=== PATIENT | female | born 1975 | race Caucasian/White ===

== ENCOUNTER → 2017-03-21 13:14 | Outpatient (CLI) | payer MEDICARE, OTHER ==
[2014-12-23 08:14] VITALS: BMI 21.9
[~2017-03-21 13:14] MED LIST: CALTRATE 600 M600 M1 PO; CLARITIN 10 MG10 MG PO; CLARITIN5 MG/5 ML; ESTRACE1 MG PO; GLUMETZA; GLUMETZA PO; GLUTOSE 1537.5 GM; HEMOCYTE PLUS C1 CAP PO; MACRODANTIN25 MG; MELATONIN 3 MG1 TAB; MINOCIN100 MG PO; MOBIC7.5 MG PO; NORCO 10/325 TA1 TA1 PO; PRAVACHOL40 MG PO; PRILOSEC10 MG; PRILOSEC20 MG PO; PROMETRIUM100 MG PO; RELAFEN750 MG PO; SOMA350 MG PO; TOPAMAX100 MG PO; TOPAMAX25 MG; VITAMIN B-1000 MCG/M IM; VIVELLE-DOT 00.05 MG; VOLTAREN25 MG
== END | disposition home or self-care (01) ==
LOC: D.MAMMO 08:00
DX: Z12.31 Encounter for screening mammogram for malignant neoplasm of breast (principal)

== ENCOUNTER 2017-07-01 20:21 | Emergency (ER) | payer MEDICARE, OTHER ==
[2014-12-23 08:14] VITALS: BMI 21.9
[2017-07-01 20:56] LABS: BASOPHILS 0.2 % (0-2); EOSINOPHILS 0.8 % (0-7); HEMATOCRIT 35.2 % (36.0-48.0); HEMOGLOBIN 11.6 g/dL (12-16); IMMATURE GRANULOCYTES 0.2 % (0-5); LYMPHOCYTES 32.9 % (15-50); MCH 28.9 pg (26.0-34.0); MCV 87.6 fL (80.0-100.0); MEAN PLATELET VOLUME 12.5 fL (7.4-10.4); MONOCYTES 8.3 % (2-11); NEUTROPHILS 57.6 % (40-80); PLATELET COUNT 164 10x3/uL (130-400); RBC 4.02 10x6/uL (4.00-5.40); RDW 13.6 % (11.5-14.5); WBC 5.9 10x3/uL (4.8-10.8)
[2017-07-01 21:20] LABS: ALBUMIN 2.8 g/dL (3.4-5.0); ALKALINE PHOSPHATASE 200 U/L (46-116); ALT (SGPT) 21 U/L (10-68); BILIRUBIN - TOTAL 0.13 mg/dL (0.2-1.3); CALC OSMOLALITY 282 mosm/kg (275-300); CALCIUM 8.6 mg/dL (8.5-10.1); CARBON DIOXIDE 26.9 mmol/L (21.0-32.0); CHLORIDE - SERUM 107 mmol/L (98-107); CREATININE - SERUM 1.6 mg/dL (0.6-1.3); GLUCOSE 106 mg/dL (74-106); POTASSIUM - SERUM 3.6 mmol/L (3.5-5.1); PROTEIN - SERUM 6.3 g/dL (6.4-8.2); SODIUM 141 mmol/L (136-145); UREA NITROGEN 17 mg/dL (7-18); eGFR NON AFRICAN AMERICAN 37 mL/min (90-120)
[2017-07-01 21:29] LABS: CHOL - HDL RATIO 2.4 ratio (2.3-4.1); CHOLESTEROL, TOTAL 226 mg/dL (0-200); CREATINE KINASE 124 UL (21-215); HDL CHOLESTEROL 94 mg/dL (32-96); LDL CHOLESTEROL 120 mg/dL (0-100); LDL-HDL RATIO 1.3 ratio (1.5-3.5); TRIGLYCERIDE 61 mg/dL (30-200)
[2017-07-01 21:32] LABS: TROPONIN-I < 0.017 ng/mL (0.000-0.060)
== END 2017-07-02 01:03 | disposition home or self-care (01) ==
LOC: D.ER 20:21
PROVIDERS: Emergency Medicine
DX: R07.81 Pleurodynia (principal)

== ENCOUNTER 2017-10-26 16:42 | Emergency (ER) | payer MEDICARE, OTHER ==
[2014-12-23 08:14] VITALS: BMI 21.9
[2017-10-26 17:34] LABS: BASOPHILS 0.2 % (0-2); EOSINOPHILS 1.1 % (0-7); HEMATOCRIT 37.7 % (36.0-48.0); IMMATURE GRANULOCYTES 0.1 % (0-5); LYMPHOCYTES 23.5 % (15-50); MCH 26.3 pg (26.0-34.0); MCHC 31.8 g/dL (31.0-37.0); MCV 82.7 fL (80.0-100.0); MEAN PLATELET VOLUME 11.3 fL (7.4-10.4); MONOCYTES 6.6 % (2-11); NEUTROPHILS 68.5 % (40-80); PLATELET COUNT 284 10x3/uL (130-400); RBC 4.56 10x6/uL (4.00-5.40); RDW 13.9 % (11.5-14.5); WBC 9.8 10x3/uL (4.8-10.8)
[2017-10-26 17:42] LABS: APPEARANCE HAZY (CLEAR); BILIRUBIN NEGATIVE (NEGATIVE); COLOR DK YELLOW (YELLOW); GLUCOSE NEGATIVE (NEGATIVE); KETONE NEGATIVE (NEGATIVE); NITRITE NEGATIVE (NEGATIVE); PROTEIN NEGATIVE (NEGATIVE); UROBILINOGEN NORMAL (NORMAL)
[2017-10-26 17:43] LABS: ALBUMIN 3.9 g/dL (3.4-5.0); BILIRUBIN - TOTAL 0.38 mg/dL (0.2-1.3); CALCIUM 8.9 mg/dL (8.5-10.1); CREATININE - SERUM 1.1 mg/dL (0.6-1.3); PROTEIN - SERUM 7.8 g/dL (6.4-8.2)
[2017-10-26 17:44] LABS: BACTERIA MODERATE /hpf (NONE SEEN)
== END 2017-10-26 22:28 | disposition home or self-care (01) ==
LOC: D.ER 16:42
PROVIDERS: Emergency Medicine
DX: K59.00 Constipation, unspecified (principal)

== ENCOUNTER → 2018-01-23 07:52 | Outpatient (CLI) | payer MEDICARE, OTHER ==
[2014-12-23 08:14] VITALS: BMI 21.9
== END | disposition home or self-care (01) ==
LOC: D.MRI 07:52
DX: D35.2 Benign neoplasm of pituitary gland (principal)

== ENCOUNTER 2018-04-14 19:00 | Outpatient (CLI) | payer MEDICARE, OTHER ==
[2014-12-23 08:14] VITALS: BMI 21.9
== END 2018-04-14 23:59 | disposition home or self-care (01) ==
LOC: D.MAMMO 19:00
DX: Z12.31 Encounter for screening mammogram for malignant neoplasm of breast (principal)

== ENCOUNTER → 2018-05-07 08:05 | Outpatient (CLI) | payer MEDICARE, OTHER ==
[2014-12-23 08:14] VITALS: BMI 21.9
[2018-05-08 10:22] LABS: IMMUNOGLOBULIN A 16 mg/dL (87-352); IMMUNOGLOBULIN G 1242 mg/dL (700-1600); IMMUNOGLOBULIN M 192 mg/dL (26-217)
[2018-05-11 13:07] LABS: IMMUNOGLOBULIN E 16 IU/mL (0-100)
== END | disposition home or self-care (01) ==
LOC: D.LAB 08:00
PROVIDERS: Internal Medicine Pulmonary Disease
DX: R06.02 Shortness of breath (principal)

== ENCOUNTER 2018-10-23 09:01 | Emergency (ER) | payer MEDICARE, OTHER ==
[~2018-10-23] VITALS: Ht 154.9 cm; Wt 51.4 kg
[2018-10-23 09:06] VITALS: Ht 154.9 cm; Wt 51.4 kg
[2018-10-23] MEDS ORDERED: PRECOSE25 MG PO (09:10)
[2018-10-23] MEDS ORDERED: AMITIZA8 MCG PO (09:11)
[2018-10-23] MEDS ORDERED: CARDIZEM30 MG PO (09:11)
[2018-10-23] MEDS ORDERED: PHENERGAN25 M1 PO (09:12)
[2018-10-23] MEDS ORDERED: HYDROXYZINE HCL50 MG PO (09:12)
[2018-10-23] MEDS ORDERED: PLAQUENIL (09:13)
[2018-10-23 10:13] LABS: ALBUMIN 3.4 g/dL (3.4-5.0); BILIRUBIN - TOTAL 0.57 mg/dL (0.2-1.3); CALCIUM 8.1 mg/dL (8.5-10.1); CARBON DIOXIDE 21.1 mmol/L (21.0-32.0); CREATININE - SERUM 1.1 mg/dL (0.6-1.3); POTASSIUM - SERUM 3.1 mmol/L (3.5-5.1); PROTEIN - SERUM 6.9 g/dL (6.4-8.2)
[2018-10-23 10:31] LABS: BASOPHILS 0.4 % (0-2); EOSINOPHILS 1.3 % (0-7); HEMATOCRIT 35.9 % (36.0-48.0); HEMOGLOBIN 12.3 g/dL (12-16); IMMATURE GRANULOCYTES 0.3 % (0-5); LYMPHOCYTES 35.4 % (15-50); MCH 28.7 pg (26.0-34.0); MCHC 34.3 g/dL (31.0-37.0); MCV 83.9 fL (80.0-100.0); MEAN PLATELET VOLUME 12.3 fL (7.4-10.4); MONOCYTES 9.3 % (2-11); NEUTROPHILS 53.3 % (40-80); PLATELET COUNT 162 10x3/uL (130-400); RBC 4.28 10x6/uL (4.00-5.40); RDW 14.3 % (11.5-14.5); WBC 7.1 10x3/uL (4.8-10.8)
[2018-10-23 10:39] LABS: APPEARANCE CLEAR (CLEAR); BILIRUBIN NEGATIVE (NEGATIVE); COLOR DK YELLOW (YELLOW); GLUCOSE NEGATIVE (NEGATIVE); KETONE NEGATIVE (NEGATIVE); NITRITE NEGATIVE (NEGATIVE); PROTEIN NEGATIVE (NEGATIVE); SPECIFIC GRAVITY 1.025 (1.005-1.020); UROBILINOGEN NORMAL (NORMAL)
[2018-10-23 12:40] VITALS: BP 117/76
== END 2018-10-23 12:40 | disposition home or self-care (01) ==
LOC: D.ER 09:01
PROVIDERS: Family Medicine
DX: E87.6 Hypokalemia (principal); E86.0 Dehydration

== ENCOUNTER 2018-11-09 01:11 | Emergency (ER) | payer MEDICARE, OTHER ==
[~2018-11-09] VITALS: Ht 154.9 cm; Wt 52.7 kg
[~2018-11-09 01:11] MED LIST changes: +AMITIZA8 MCG PO; +CARDIZEM30 MG PO; +HYDROXYZINE HCL50 MG PO; +PHENERGAN25 M1 PO; +PLAQUENIL; +PRECOSE25 MG PO
[2018-11-09 01:18] VITALS: Ht 154.9 cm; Wt 52.7 kg
[2018-11-09] MEDS ORDERED: ZPAK PO (02:13)
[2018-11-09] MEDS ORDERED: SCOT-TUSSI10 MG/5 ML PO (02:14)
[2018-11-09 02:33] VITALS: BP 112/70
== END 2018-11-09 02:33 | disposition home or self-care (01) ==
LOC: D.ER 01:11
DX: J06.9 Acute upper respiratory infection, unspecified (principal); R09.89 Other specified symptoms and signs involving the circulatory and respiratory systems; R05 Cough

== ENCOUNTER 2019-08-04 05:55 | Day surgery (SDC) | payer MEDICARE, OTHER ==
[2018-11-09 01:18] VITALS: BMI 21.9
[~2019-08-04 05:55] MED LIST changes: +AJOVY IM; +MAXALT10 MG PO; +METHOCARBAMOL PO; +MINIVELLE1 EAC1 TRANSDERM; -MINOCIN100 MG PO; +MINOCIN50 MG PO; +MYRBETRIQ50 MG PO; -PLAQUENIL; +PLAQUENIL PO; +SCOT-TUSSI10 MG/5 ML PO; +TIROSINT50 MCG PO; +VALIUM10 MG PO; +ZOLOFT50 MG PO; +ZPAK PO
[2019-08-04 06:25] LABS: HEMATOCRIT 35.1 % (36.0-48.0); MCH 26.2 pg (26.0-34.0); MCHC 31.3 g/dL (31.0-37.0); MCV 83.6 fL (80.0-100.0); MEAN PLATELET VOLUME 11.5 fL (7.4-10.4); RBC 4.2 10x6/uL (4.00-5.40); RDW 14.7 % (11.5-14.5)
[2019-08-04 07:18] LABS: ANION GAP 10.8 mmol/L (8-16); CALCIUM 8.5 mg/dL (8.5-10.1); CARBON DIOXIDE 26.8 mmol/L (21.0-32.0); CREATININE - SERUM 1.3 mg/dL (0.6-1.3); POTASSIUM - SERUM 3.6 mmol/L (3.5-5.1)
--- NOTE | 2019-08-04 09:19 | NUR ---
PT INTRUCTED TO MOVE FROM SIDE TO SIDE PER DR. MORALES. WAIT FOR 15 MINTUES BEFORE USING BATHROOM
--- NOTE | 2019-08-04 09:46 | NUR ---
DC INSTRUCTIONS GIVEN TO PT/SPOUSE. STATE UNDERSTANDING. DC'D IV CATH FULLY INTACT. PT LEFT UNIT VIA AT [id number]
--- NOTE | 2019-08-04 09:52 | OP ---
PATIENT NAME: DONNY TERRELL MEDICAL RECORD: [id number] :71 LOCATION:D[facility] ADMISSION DATE: SURGEON: ILSA MORALES MD DATE OF OPERATION: 08/04/2019 SURGEON: Ilsa Morales MD ANESTHESIA: TIVA by Jessica Argueta CRNA DIAGNOSES: Interstitial cystitis, urge urinary incontinence. PROCEDURES: Cystoscopy, hydrodistention, intravesical Botox injection, intravesical Rimso instillation 50 mL. FINDINGS: Inflamed bladder mucosa without any bladder tumors. Single ureteral orifices bilaterally. BLOOD LOSS: None. CLINICAL HISTORY: This is a 43-year-old female, G0, P0, A0, who has had a history of hysterectomy for endometriosis. She has chronic bladder pain. Urinalysis is completely clear. She has urinary frequency every 2 hours as well as nocturia times 5-6. There is urgency. Initially, she has had without incontinence, but lately she has had some episodes of incontinence. She recently had exploratory laparotomy for chronic pelvic pain and no significant findings were noted. This was done at [facility] in [place]. Today, we are performing procedures to treat interstitial cystitis and urge incontinence. She is allergic to multiple antibiotics. She was given 40 mg of gentamicin IV organic section technical lead to the OR. DESCRIPTION OF PROCEDURE: The patient was given IV sedation. She was placed in the lithotomy position and prepped and draped. A 20-Polish cystoscope with 30-degree lens was used for visualization. She has diffuse bladder inflammation. The bladder was distended to 600 mL. While the bladder was distended, we injected at 10 different locations 1 mL of Botox solution into the bladder muscle. Each mL of Botox solution had 10 units of Botox dissolved in it. We avoided the ureteral orifices on the trigone. Once the Botox injection was done, the hydrodistention was also completed. The bladder was then emptied through the cystoscope sheath. We inserted a red rubber catheter, and through the lumen of the red rubber catheter we instilled the 50 mL of Rimso solution into the bladder. The red rubber catheter was then removed, leaving the Rimso solution in the bladder. The patient will hold the Rimso solution for 15 minutes and then void it out. I will see her in followup in 2-3 weeks to check on the effectiveness of this treatment. TRANSINT:[id number] Voice Confirmation ID: [id number] DOCUMENT ID: [id number] OPERATIVE REPORT [id number] NIDHI,ILSA BECERRA MD at 0952 CC: [id number] DICTATION DATE: 08/04/19900 BAND MACHINE OPERATOR: 08/04/1944 [facility] 08/04/19 [place] [id number] [place] [id number]
== END 2019-08-04 09:42 | disposition home or self-care (01) ==
LOC: D.OPS 05:55 → D.PAN 08:40 → D.OPS 08:40 → D.PAN 09:00 → D.OPS 09:00
PROVIDERS: Anesthesiology; ATTEND Urology
DX: N30.10 Interstitial cystitis (chronic) without hematuria (principal); N39.41 Urge incontinence

== ENCOUNTER → 2020-06-14 17:00 | Outpatient (CLI) | payer MEDICARE, OTHER ==
[2018-11-09 01:18] VITALS: BMI 21.9
== END ==
LOC: D.MAMMO 06-10 14:15
PROVIDERS: ATTEND Emergency Medicine
DX: Z12.31 Encounter for screening mammogram for malignant neoplasm of breast (principal)

== ENCOUNTER 2020-11-18 13:21 | Inpatient (IN) | payer MEDICARE, OTHER ==
[~2020-11-18] VITALS: Ht 154.9 cm; Wt 52.3 kg
[~2020-11-18 13:21] MED LIST changes: -MELATONIN 3 MG1 TAB; +MELATONIN 3 MG1 TAB PO
[2020-11-18 13:43] VITALS: BP 149/97
--- NOTE | 2020-11-18 13:57 | NUR ---
PATIENT ARRIVED TO UNIT VIA WHEELCHAIR WITH SPOUSE AND SERVICE DOG. ALERT AND ORIENTED. VS CHARTED. CALL LIGHT IN REACH. SAFETY PRECAUTIONS IN PLACE.
--- NOTE | 2020-11-18 15:02 | NUR ---
TRIED FOR IV ACCESS X2 NURSES. WILL HAVE ANOTHER NURSE TRY.
[2020-11-18 15:23] LABS: BASOPHILS 0.2 % (0-2); EOSINOPHILS 0.4 % (0-7); HEMATOCRIT 29.9 % (36.0-48.0); HEMOGLOBIN 9.9 g/dL (12-16); IMMATURE GRANULOCYTES 0.2 % (0-5); LYMPHOCYTE ABS# 1.47 10x3/uL (1.18-3.74); LYMPHOCYTES 27.3 % (15-50); MCH 26.9 pg (26.0-34.0); MCHC 33.1 g/dL (31.0-37.0); MCV 81.3 fL (80.0-100.0); MONOCYTES 8.2 % (2-11); NEUTROPHIL ABS# 3.43 10x3/uL (1.56-6.13); NEUTROPHILS 63.7 % (40-80); RBC 3.68 10x6/uL (4.00-5.40); RDW 13.7 % (11.5-14.5); WBC 5.4 10x3/uL (4.8-10.8)
[2020-11-18 15:25] LABS: PLATELET COUNT 97 10x3/uL (130-400)
[2020-11-18 15:31] LABS: ANION GAP 10.7 mmol/L (8-16); BILIRUBIN - TOTAL 0.46 mg/dL (0.2-1.3); CALCIUM 10.4 mg/dL (8.5-10.1); CARBON DIOXIDE 26.5 mmol/L (21.0-32.0); CREATININE - SERUM 2.7 mg/dL (0.6-1.3); POTASSIUM - SERUM 3.2 mmol/L (3.5-5.1); PROTEIN - SERUM 6.1 g/dL (6.4-8.2); THYROID STIMULATING HORMONE 1.16 uIU/mL (0.36-3.74)
--- NOTE | 2020-11-18 15:35 | NUR ---
BLADDER SCAN PRIOR TO VOIDING WAS 77CC.
[2020-11-18 15:57] LABS: CREATININE - URINE 178.8 mg/dL (30-125); PRO/CRE RATIO URINE 0.3 mg/g; PROTEIN - URINE 49.2 mg/dL (0.0-11.9)
[2020-11-18 16:26] LABS: PLATELET ESTIMATE DECREASED
[2020-11-18 16:28] LABS: BILIRUBIN NEGATIVE (NEGATIVE); KETONE NEGATIVE (NEGATIVE); NITRITE NEGATIVE (NEGATIVE); UROBILINOGEN NORMAL mg/dL (< 2)
[2020-11-18 18:46] VITALS: BP 149/97; BMI 19.3
[2020-11-18 19:46] VITALS: BP 103/67
[2020-11-18 23:33] LABS: AMYLASE - SERUM 38 U/L (25-115); CKMB 0.8 U/L (0.0-3.6); LIPASE 71 U/L (73-393); MAGNESIUM - SERUM 1.7 mg/dL (1.8-2.4); TROPONIN-I 0.028 ng/mL (0.000-0.060)
[2020-11-19 03:50] VITALS: BP 128/60
[2020-11-19 04:47] LABS: BASOPHILS 0.3 % (0-2); EOSINOPHILS 1.5 % (0-7); HEMATOCRIT 24.9 % (36.0-48.0); LYMPHOCYTE ABS# 1.54 10x3/uL (1.18-3.74); LYMPHOCYTES 44.8 % (15-50); MCH 26.7 pg (26.0-34.0); MCHC 32.1 g/dL (31.0-37.0); MONOCYTES 12.2 % (2-11); NEUTROPHIL ABS# 1.42 10x3/uL (1.56-6.13); NEUTROPHILS 41.2 % (40-80); PLATELET COUNT 79 10x3/uL (130-400); RDW 13.8 % (11.5-14.5)
[2020-11-19 04:48] LABS: WBC 3.4 10x3/uL (4.8-10.8)
[2020-11-19 05:16] LABS: ALBUMIN 2.3 g/dL (3.4-5.0); ANION GAP 9.9 mmol/L (8-16); BILIRUBIN - TOTAL 0.41 mg/dL (0.2-1.3); CALCIUM 8.7 mg/dL (8.5-10.1); CARBON DIOXIDE 24.1 mmol/L (21.0-32.0); CREATININE - SERUM 2.4 mg/dL (0.6-1.3); MAGNESIUM - SERUM 1.7 mg/dL (1.8-2.4)
[2020-11-19 08:02] VITALS: BMI 19.2
[2020-11-19 08:32] VITALS: BP 107/63
--- NOTE | 2020-11-19 09:28 | NUR ---
PT AWAKE AND ORIENTED, LYING IN BED WATCHING T/V. PT HAD ALREADY EATEN SMALL AMOUNTS OF BREAKFAST. WILL REMAIN NPO UNTIL EMPTYING SCAN AT 1500. STATES NAUSEA IS A LITTLE BETTER NOW THAT PO PHENERAGAN HAS BEEN ADMINISTERED. TREATING K VIA I/V PER RENAL RECORDING STUDIO INTERN, PT UNABLE TO TOLERATE PO K EITHER POWDER OR PILL. TOOK ALL OTHER MEDICATIONS WITHOUT COMPLICATIONS. CL IN REACH, SRX2.
--- NOTE | 2020-11-19 09:58 | NUR ---
I have reviewed this patient and I concur with the Shift Assessment completed by the Licensed Practical Nurse today this shift.
--- NOTE | 2020-11-19 11:14 | NUR ---
PT STATES IT FEELS IF SHE NEEDS TO URINATE, REASURED PT AND FAMILY THAT GOMEZ CATH IS IN AND WORKING WNL. SON AT BEDSIDE. CL INR EACH, SRX2. PENSION ADMINISTRATOR REPORTED THAT PT WORE BIPAP FOR 5HRS LAST NIGHT.
[2020-11-19 12:36] LABS: % SATURATION 72 % (15-55); IRON 93 ug/dl (35-150); TOTAL IRON BIND CAPACITY 128 ug/dl (260-445); UNSAT IRON BIND CAPACITY 35 ug/dl (150-375)
[2020-11-19 14:00] LABS: UDS - AMPHET NEGATIVE QUAL (NEGATIVE); UDS - BARB NEGATIVE QUAL (NEGATIVE); UDS - BENZO NEGATIVE QUAL (NEGATIVE); UDS - COCAINE NEGATIVE QUAL (NEGATIVE); UDS - OPIATE POSITIVE QUAL (NEGATIVE); UDS - PCP POSITIVE QUAL (NEGATIVE); UDS - THC NEGATIVE QUAL (NEGATIVE)
[2020-11-19 14:35] VITALS: BP 94/47
--- NOTE | 2020-11-19 15:06 | NUR ---
PT ESCORTED FOR GASTRO SCAN.
--- NOTE | 2020-11-19 16:29 | NUR ---
PT AWAKE AND ORIENTED, FRANC FROM GASTRO SCAN. CLIN REACH, SRX2.
[2020-11-19 16:43] VITALS: BP 120/64
[2020-11-19 22:19] VITALS: BP 122/68
[2020-11-20 00:30] VITALS: BP 93/40
[2020-11-20 04:30] VITALS: BP 103/57
[2020-11-20 06:59] LABS: BASOPHILS 0.3 % (0-2); EOSINOPHILS 2.5 % (0-7); HEMATOCRIT 24.8 % (36.0-48.0); HEMOGLOBIN 7.6 g/dL (12-16); LYMPHOCYTE ABS# 1.59 10x3/uL (1.18-3.74); MCH 26.2 pg (26.0-34.0); MCHC 30.6 g/dL (31.0-37.0); MONOCYTES 8.2 % (2-11); NEUTROPHIL ABS# 1.55 10x3/uL (1.56-6.13); PLATELET COUNT 71 10x3/uL (130-400); RDW 14.2 % (11.5-14.5); WBC 3.5 10x3/uL (4.8-10.8)
[2020-11-20 07:00] LABS: MCV 85.5 fL (80.0-100.0); PLATELET ESTIMATE DECREASED
[2020-11-20 07:19] LABS: ALBUMIN 2.2 g/dL (3.4-5.0); ANION GAP 11.2 mmol/L (8-16); BILIRUBIN - TOTAL 0.4 mg/dL (0.2-1.3); CALCIUM 7.9 mg/dL (8.5-10.1); CARBON DIOXIDE 20.2 mmol/L (21.0-32.0); CREATININE - SERUM 2.1 mg/dL (0.6-1.3); MAGNESIUM - SERUM 1.6 mg/dL (1.8-2.4); POTASSIUM - SERUM 3.4 mmol/L (3.5-5.1); PROTEIN - SERUM 4.5 g/dL (6.4-8.2)
--- NOTE | 2020-11-20 12:01 | NUR ---
RESITED I/V TO LFA 20G 1 STICK. FLUIDS RUNNING APPROPRIATELY.
[2020-11-20 12:49] VITALS: BP 116/70
--- NOTE | 2020-11-20 14:31 | NUR ---
PT AWAKE AND ORIENTED THROUGHOUT THE DAY. TOOK ALL MEDICATIONS WITHOUT COMPLICATIONS. REPORTS CONTINUED NAUSEA BUT NO VOMMITING. PT STATES THAT HER BACK PAIN IS INCREASING THROUGHOUT THE DAY, REQUESTING A DIFFERENT PAIN MEDICATION FOR MANAGMENT. PT IS ALERT AND ORIENTED, AMBULATING IN ROOM UNASSISTED WITH NO REPORTED OR NOTED DIFFICULTIES. REMOVED 20G RAC TIP INTACT D/T INFILTRATION, REPLACED WITH 20GLFA, I/V FLUIDS RUNNING M.D ORDERED. CL IN REACH, SRX2.
--- NOTE | 2020-11-20 17:21 | NUR ---
I have reviewed this patient and I concur with the Shift Assessment completed by the Licensed Practical Nurse today this shift.
[2020-11-20 17:41] VITALS: Ht 154.9 cm; Wt 52.3 kg
--- NOTE | 2020-11-20 17:53 | NUR ---
PER NURSE HARRIET TO SCHEDULE CT BONE DEEP BIOPSY ON 11/21 WHEN RADIOLOGIST IS IN HOUSE. NURSE COMMENTED NOT ON BLOOD THINNERS. RADIOLOGIST TO BE INFORMED IN THE AM SCHEDULED
[2020-11-20 18:52] VITALS: BP 126/78
[2020-11-20 19:00] VITALS: BP 120/71
[2020-11-21] VITALS (7 sets, daily range): BP systolic 98–128; BP diastolic 61–82
[2020-11-21 07:17] LABS: ALBUMIN 2.4 g/dL (3.4-5.0); ANION GAP 13.4 mmol/L (8-16); BILIRUBIN - TOTAL 0.33 mg/dL (0.2-1.3); CALCIUM 7.4 mg/dL (8.5-10.1); CARBON DIOXIDE 18.2 mmol/L (21.0-32.0); CREATININE - SERUM 1.9 mg/dL (0.6-1.3); MAGNESIUM - SERUM 1.5 mg/dL (1.8-2.4); POTASSIUM - SERUM 3.6 mmol/L (3.5-5.1); PROTEIN - SERUM 4.8 g/dL (6.4-8.2)
[2020-11-21 07:34] LABS: BASOPHILS 0.5 % (0-2); EOSINOPHILS 2.5 % (0-7); HEMATOCRIT 24.2 % (36.0-48.0); HEMOGLOBIN 7.6 g/dL (12-16); LYMPHOCYTE ABS# 1.76 10x3/uL (1.18-3.74); LYMPHOCYTES 44.1 % (15-50); MCH 26.4 pg (26.0-34.0); MCHC 31.4 g/dL (31.0-37.0); MONOCYTES 10.8 % (2-11); NEUTROPHIL ABS# 1.68 10x3/uL (1.56-6.13); NEUTROPHILS 42.1 % (40-80); PLATELET COUNT 77 10x3/uL (130-400); RBC 2.88 10x6/uL (4.00-5.40); RDW 14.1 % (11.5-14.5)
[2020-11-21 07:35] LABS: INR 1.16 (0.85-1.17); PROTIME 13.7 SECONDS (11.6-15.0)
--- NOTE | 2020-11-21 09:16 | NUR ---
PT ESCORTED TO RADIOLOGY FOR SCAN.
--- NOTE | 2020-11-21 12:40 | NUR ---
PT AWAKE AN DOIRENTED, LYING IN BED AFTER EATING LUNCH. STATES NAUSEA IS BETTER BUT STILL PRESENT. PT REPORTS BACK PAIN CONSISTENT WITH YESTERDAYS COMPLAINTS. TOOK ALL MEDICATIONS WITHOUT COMPLICATIONS. CL IN REACH, SRX2.
--- NOTE | 2020-11-21 18:00 | NUR ---
I have reviewed this patient and I concur with the Shift Assessment completed by the Licensed Practical Nurse today this shift.
--- NOTE | 2020-11-21 18:23 | NUR ---
PT AWAKE AND OIRENTED, LYING IN BED. REPORTS DIAHREAH, OBTAINED STOOL SPECIMENS. CL IN REACH, SRX2.
[2020-11-22] VITALS: BP 103/67
--- NOTE | 2020-11-22 00:55 | NUR ---
RESTING WITH EEYS CLOSED, NO S/S DISTRESS NOTED.
--- NOTE | 2020-11-22 03:26 | NUR ---
I have reviewed this patient and I concur with the Shift Assessment completed by the Licensed Practical Nurse today this shift.
[2020-11-22 04:00] VITALS: BP 108/61
[2020-11-22 05:48] LABS: ALBUMIN 2.1 g/dL (3.4-5.0); ANION GAP 11.3 mmol/L (8-16); BILIRUBIN - TOTAL 0.25 mg/dL (0.2-1.3); CALCIUM 7.1 mg/dL (8.5-10.1); CARBON DIOXIDE 18.5 mmol/L (21.0-32.0); CREATININE - SERUM 1.6 mg/dL (0.6-1.3); MAGNESIUM - SERUM 1.5 mg/dL (1.8-2.4); POTASSIUM - SERUM 3.8 mmol/L (3.5-5.1); PROTEIN - SERUM 4.6 g/dL (6.4-8.2)
[2020-11-22 06:36] LABS: LYMPHOCYTE ABS# 0.94 10x3/uL (1.18-3.74); MCH 27.2 pg (26.0-34.0); MCHC 32.8 g/dL (31.0-37.0); NEUTROPHIL ABS# 1.53 10x3/uL (1.56-6.13); PLATELET COUNT 70 10x3/uL (130-400); RBC 2.35 10x6/uL (4.00-5.40); RDW 14.5 % (11.5-14.5); WBC 3.1 10x3/uL (4.8-10.8)
[2020-11-22 06:57] LABS: HEMATOCRIT 19.5 % (36.0-48.0); HEMOGLOBIN 6.4 g/dL (12-16)
--- NOTE | 2020-11-22 07:06 | NUR ---
PAGE OUT TO DR REESE TO INFORM OF CRITICAL H&H.
[2020-11-22 09:14] VITALS: BP 144/70
--- NOTE | 2020-11-22 13:11 | NUR ---
Nutrition Follow-up: Pt unavailable at time of visit this AM. Chart reviewed. Noted pt c/o nausea, diarrhea, abd pain. Nursing unsure of how pt has been eating; received Zofran & Imodium this AM. CDT (-). Bone marrow bx yesterday. Diet: Regular PO intake: 0-50% (11/19); no other PO intake recorded No new wt; last wt: 102# (11/19) Labs noted: BUN 6, Cre 1.6, GFR 37, Glu 70, Ca 7.1, Mg 1.5, Alb 2.1 Meds noted: Mag Sulfate, vit D, Pancrease, Reglan, Zofran, Carafate, Imodium, KDur, Protonix, NS @ 75, electrolyte protocol -Encourage PO intake and honor food preferences. -Offer nutrition supplements. -Need new wt. -RD will follow up within 2-3 days.
[2020-11-22 13:13] LABS: HEPATITIS C ANTIBODY <0.1 S/CO RAT (0.0-0.9)
[2020-11-22 13:49] LABS: LYMPHOCYTES 41 % (15-50); MONOCYTES 5 % (2-11); NEUTROPHILS 53 % (40-80); PLATELET ESTIMATE DECREASED; ROULEAUX OCC
[2020-11-22 13:50] LABS: HYPOCHROMASIA OCC
--- NOTE | 2020-11-22 14:53 | NUR ---
PATIENT LYING SUPINE AAOX4, RESP EVEN AND NON LABORED, NO S/S OF DISTRESS, MEDICATIONS ADMINISTERED WITH NO COMPLICATIONS, SPRITE AND CRACKERS PROVIDED FOR N/V, BLOOD HUNG AND MONITORED PATIENT FOR THE FIRST 15 MINUTES, PATIENT TOLERATED WITH NO ISSUES, NO FURTHER NEEDS AT THIS TIME, CLIR, BLP
[2020-11-22 16:00] VITALS: BP 109/45
--- NOTE | 2020-11-22 16:46 | NUR ---
BLOOD CONSENT OBATINED AND BLOOD HUNG, PATIENT TOLERATED WITH NO COMPLICATIONS
[2020-11-22 20:00] VITALS: BP 120/70
--- NOTE | 2020-11-22 20:50 | NUR ---
IV COVERED, PT UP TO SHOWER, LINENS CHANGED.
--- NOTE | 2020-11-23 03:33 | NUR ---
I have reviewed this patient and I concur with the Shift Assessment completed by the Licensed Practical Nurse today this shift.
[2020-11-23 04:00] VITALS: BP 109/63
[2020-11-23 05:06] LABS: BASOPHILS 0.6 % (0-2); EOSINOPHILS 3.6 % (0-7); LYMPHOCYTE ABS# 1.29 10x3/uL (1.18-3.74); LYMPHOCYTES 35.7 % (15-50); MCH 27.4 pg (26.0-34.0); MCHC 32.2 g/dL (31.0-37.0); MONOCYTES 10.8 % (2-11); NEUTROPHIL ABS# 1.78 10x3/uL (1.56-6.13); NEUTROPHILS 49.3 % (40-80); PLATELET COUNT 66 10x3/uL (130-400); RDW 15.2 % (11.5-14.5); WBC 3.6 10x3/uL (4.8-10.8)
[2020-11-23 05:14] LABS: HEMATOCRIT 25.8 % (36.0-48.0); HEMOGLOBIN 8.3 g/dL (12-16); MCV 85.1 fL (80.0-100.0); RBC 3.03 10x6/uL (4.00-5.40)
[2020-11-23 06:15] LABS: ALBUMIN 2.1 g/dL (3.4-5.0); BILIRUBIN - TOTAL 0.34 mg/dL (0.2-1.3); CARBON DIOXIDE 17.6 mmol/L (21.0-32.0); CREATININE - SERUM 1.5 mg/dL (0.6-1.3); POTASSIUM - SERUM 3.6 mmol/L (3.5-5.1); PROTEIN - SERUM 4.5 g/dL (6.4-8.2)
[2020-11-23 06:32] LABS: MAGNESIUM - SERUM 1.9 mg/dL (1.8-2.4)
[2020-11-23 06:34] LABS: CALCIUM 6.9 mg/dL (8.5-10.1)
--- NOTE | 2020-11-23 07:13 | NUR ---
RECEIVE SHIFT REPORT. RESTING IN BED WITH LIGHTS OFF. TV ON. STATES HER STOMACH FEELS BLOATED IN THE LOWER PART AND UPPER ABDOMEN FEELS LIKE STABBING PAIN. COMPLAINTS OF BACK PAIN. WILL CONTINUE POC AND SAFETY PRECAUTIONS. MEDICATIONS GIVEN FOR PAIN.
[2020-11-23 08:28] VITALS: BP 111/64
[2020-11-23 12:24] VITALS: BP 127/75
--- NOTE | 2020-11-23 14:39 | NUR ---
NOTIFIED BY BLOOD BANK THAT ONLY 1 UNIT OF PRBC WAS GIVEN OUT OF 2 YESTERDAY 11/22/20. WAS TOLD IN REPORT FROM DARELL DING THAT PATIENT RECEIVED 2 UNITS PRBC YESTERDAY. CALLED DARIUSZ BERUMEN AND DISCUSSED. ORDERED NOT TO GIVE THE SECOND ONE SHE LOOKS BETTER TODAY. PATIENT STATES SHE IS BLOATED AND NOT PASSING GAS. DARIUSZ BERUMEN ORDERED GAS X.
[2020-11-23 16:01] VITALS: BP 109/71
[2020-11-23 23:44] VITALS: BP 132/74
[2020-11-24 04:45] VITALS: BP 126/73
[2020-11-24 05:28] LABS: BASOPHILS 0.3 % (0-2); EOSINOPHILS 2.9 % (0-7); HEMATOCRIT 27.3 % (36.0-48.0); HEMOGLOBIN 8.6 g/dL (12-16); LYMPHOCYTE ABS# 1.26 10x3/uL (1.18-3.74); LYMPHOCYTES 37.1 % (15-50); MCHC 31.5 g/dL (31.0-37.0); MCV 85.8 fL (80.0-100.0); MONOCYTES 13.5 % (2-11); NEUTROPHIL ABS# 1.57 10x3/uL (1.56-6.13); NEUTROPHILS 46.2 % (40-80); RBC 3.18 10x6/uL (4.00-5.40); RDW 15.4 % (11.5-14.5); WBC 3.4 10x3/uL (4.8-10.8)
[2020-11-24 05:39] LABS: PLATELET COUNT 94 10x3/uL (130-400)
[2020-11-24 05:51] LABS: ALBUMIN 2.2 g/dL (3.4-5.0); BILIRUBIN - TOTAL 0.3 mg/dL (0.2-1.3); CARBON DIOXIDE 20.6 mmol/L (21.0-32.0); CREATININE - SERUM 1.4 mg/dL (0.6-1.3); PROTEIN - SERUM 4.9 g/dL (6.4-8.2)
[2020-11-24 06:06] LABS: ANION GAP 10.6 mmol/L (8-16); POTASSIUM - SERUM 4.2 mmol/L (3.5-5.1)
[2020-11-24 06:07] LABS: CALCIUM 6.8 mg/dL (8.5-10.1)
--- NOTE | 2020-11-24 06:26 | NUR ---
I have reviewed this patient and I concur with the Shift Assessment completed by the Licensed Practical Nurse today this shift.
--- NOTE | 2020-11-24 07:13 | NUR ---
RECEIVE SHIFT REPORT. RESTING IN BED WITH TV ON. DENIES ANY NEEDS AT THIS TIME. STATES IMMODIUM IS HELPING DIARRHEA SOME. WILL CONTINUE MONITORING BOWEL MOVEMENTS. CALL LIGHT IN REACH. WILL CONTINUE POC AND SAFETY PRECAUTIONS.
[2020-11-24 08:00] VITALS: BP 131/80
[2020-11-24 11:00] VITALS: BP 130/77
--- NOTE | 2020-11-24 13:24 | NUR ---
Nutrition Follow-up: Poor PO intake. Still c/o nausea this AM without vomiting. Diarrhea somewhat improved with Imodium. Ate soup last night. Reports that she is lactose intolerant. Diet: Regular Wt: 115# (11/24) Labs noted: Ca 6.8, Alb 2.2 Meds noted: Questran, Imodium, Zofran, Carafate, Protonix, KDur, NS @ 75 -Change to GI soft diet; communicate lactose intolerance to kitchen. -Encourage PO intake and honor food preferences. -Monitor wt. -RD follow-up: 11/28
[2020-11-24 15:00] VITALS: BP 112/66
[2020-11-24 18:34] LABS: ALBUMIN 2.6 g/dL (3.4-5.0); BILIRUBIN - TOTAL 0.25 mg/dL (0.2-1.3); CALCIUM 7.2 mg/dL (8.5-10.1); CARBON DIOXIDE 20.1 mmol/L (21.0-32.0); CREATININE - SERUM 1.4 mg/dL (0.6-1.3); POTASSIUM - SERUM 4.1 mmol/L (3.5-5.1); PROTEIN - SERUM 5.4 g/dL (6.4-8.2)
--- NOTE | 2020-11-24 21:00 | NUR ---
PATIENT ALERT AND ORIENTED. REPORTS PAIN TO BACK 04/18. WILL MEDICATE PER EMAR. CLIR. BED IN LOWEST POSITION. WILL CONT TO MONITOR.
[2020-11-24 21:27] VITALS: BP 137/79
--- NOTE | 2020-11-24 23:44 | NUR ---
BLOOD GLUCOSE 69. SN GAVE JUICE AND CRACKERS. WILL RECHECK IN 30 MINUTES. CLIR. BED IN LOWEST POSITION.
[2020-11-25 00:11] VITALS: BP 140/80
--- NOTE | 2020-11-25 00:40 | NUR ---
RECHECKED BLOOD GLUCOSE-108
[2020-11-25 04:40] VITALS: BP 109/69
[2020-11-25 04:43] LABS: BASOPHILS 0.6 % (0-2); EOSINOPHILS 3.9 % (0-7); HEMATOCRIT 27.7 % (36.0-48.0); HEMOGLOBIN 8.8 g/dL (12-16); LYMPHOCYTE ABS# 1.25 10x3/uL (1.18-3.74); LYMPHOCYTES 34.5 % (15-50); MCH 27.2 pg (26.0-34.0); MCHC 31.8 g/dL (31.0-37.0); MCV 85.5 fL (80.0-100.0); MONOCYTES 13.5 % (2-11); NEUTROPHIL ABS# 1.72 10x3/uL (1.56-6.13); NEUTROPHILS 47.5 % (40-80); PLATELET COUNT 110 10x3/uL (130-400); RBC 3.24 10x6/uL (4.00-5.40); RDW 15.4 % (11.5-14.5); WBC 3.6 10x3/uL (4.8-10.8)
--- NOTE | 2020-11-25 07:15 | NUR ---
RECEIVE SHIFT REPORT. RESTING IN BED WITH TV ON. DENIES ANY NEEDS AT THIS TIME. HOPING TO D/C EARLY THIS AM. WILL CONTINUE POC AND SAFETY PRECAUTIONS. RECHECKED PREVIOUS LOW BLOOD SUGAR. CURRENT IS 108.
[2020-11-25 08:31] VITALS: BP 136/76
[2020-11-25] MEDS ORDERED: MEPERIDINE HCL50 MG PO (10:46)
[2020-11-25] MEDS ORDERED: METHOCARBAMOL750 MG PO (10:53)
[2020-11-25] MEDS ORDERED: ZOLOFT100 MG PO (10:54)
[2020-11-25] MEDS ORDERED: K-DUR20 MEQ PO (10:55)
[2020-11-25] MEDS ORDERED: CARAFATE1 G PO (10:55)
[2020-11-25] MEDS ORDERED: ERGOCALCIF50000 UNIT PO (10:56)
[2020-11-25] MEDS ORDERED: ZPAK PO (10:57)
[2020-11-25] MEDS ORDERED: CALMOSEPTINE OI71 GM TOPICAL (10:57)
[2020-11-25] MEDS ORDERED: QUESTRAN LIG1 PACKET PO (10:57)
[2020-11-25] MEDS ORDERED: FLUTICASONE PRO16 GM NASAL (10:58)
[2020-11-25] MEDS ORDERED: ONDANSETRON ODT8 MG PO (11:39)
--- NOTE | 2020-11-25 14:31 | NUR ---
D/C LEFT FOREARM IV, TIP INTACT. DISCHARGE INSTRUCTIONS GIVEN VERBALLY AND HANDOUTS PROVIDED. CALLED. WILL TAKE DOWN TO ED ENTRANCE UPON ARRIVAL.
--- NOTE | 2020-11-25 14:54 | NUR ---
TAKEN DOWN TO ED ENTRANCE VIA WHEELCHAIR. REMAINS FREE FROM INJURY.
--- NOTE | 2020-11-25 17:33 | MORECARE ---
CASE MANAGEMENT DISCHARGE SUMMARY PATIENT: DONNY TERRELL UNIT: [id number] ADM DATE: 11/18/20 AGE: 44 : 71 SEX: F ROOM/BED: [facility] AUTHOR: ELEAZAR,DOC PHYSICIAN: REFERRING PHYSICIAN: MARYCHUY BADILLO MD DATE OF SERVICE: 11/25/20 Case Management Discharge Planning Summary DCP REVIEW SUMMARY ANTICIPATED D/C DATE: EXPECTED LOS : CASE STATUS: DCP Initiated INITIAL REVIEW: 11/22/2020 INITIAL REVIEWER: Mariama Urena FINAL DISCHARGE DISPOSITION: 01 : Home or Self Care (Routine Discharge) FINAL REVIEWER: Mariama Urena FINAL REVIEW DATE: 11/25/2020 DCP Focus Questions & Answers - Added on: QUESTION: ANSWER : PATIENT: DONNY TERRELL ENCOUNTER: [id number] MEDICAL RECORD#: [id number] ADMISSION DATE: 11/18/2020 DISCHARGE DATE: 11/25/2020 ATTENDING MD: MARIANA FITZPATRICK : AGE: 44 MARITAL STATUS: M DC PLAN ID: [id number] FACILITY: [facility] PRINTED ON: 11/25/20 17:33 CT All edits/amendments must be made on the electronic document DICTATION DATE: 11/25/201732 DENTAL INTERN: INOCENCIA 11/25/201732 RPT#: [id number] DC DATE:11/25/20 STATUS: DIS IN [place] [id number] [place] [address] END OF REPORT
--- NOTE | 2020-11-25 17:47 | MORECARE ---
CASE MANAGEMENT DISCHARGE SUMMARY PATIENT: DONNY TERRELL UNIT: [id number] ADM DATE: 11/18/20 AGE: 44 : 71 SEX: F ROOM/BED: D.8692 AUTHOR: ELEAZARDOC PHYSICIAN: REFERRING PHYSICIAN: MARYCHUY BADILLO MD DATE OF SERVICE: 11/25/20 Case Management Discharge Planning Summary DCP REVIEW SUMMARY ANTICIPATED D/C DATE: EXPECTED LOS : CASE STATUS: DCP Initiated INITIAL REVIEW: 11/22/2020 INITIAL REVIEWER: Mariama Urena FINAL DISCHARGE DISPOSITION: 01 : Home or Self Care (Routine Discharge) FINAL REVIEWER: Mariama Urena FINAL REVIEW DATE: 11/25/2020 DCP Focus Questions & Answers DCP REV -DCP Review Added on: 11/25/20 5:36 pm QUESTION: ANSWER DCP Screen High Risk Factors: : None Walking limitation: Patient stated self rated walking limitation present? : No Age: : 43 - 62 Prior living environment: : Lives with others DCP Evaluation Patient's ability to cope with chronic illness : d. No chronic illness Mental health screen: : No mental health history Would patient like to participate in any Care Coordination programs (if applicable): : Not applicable Living Arrangements: : Home with Spouse/Significant Other Medication Management: : Patient states can afford medications Pharmacy name(s): : [facility] [place] Does Patient have transportation to get home and to follow-up medical appointments when discharged from the hospital? : Yes Does the patient have electricity at home? : Yes Does the patient have running water in their house? : Yes Equipment in use: : Shower Chair Patient's current cognitive status: : *Oriented to person, place, situation, time and present Functional screen assessment: : Basic needs can adequately be met by self Patient with capacity for self-care or can be cared for in same environment as prior to hospitalization? : Yes Family / Caregiver's ability to cope with chronic illness: : a. Adequate (ability to meet patient's medical needs, ensures patient attends medical appts.) Does the patient have the ability to pay for or attain post discharge needs / services? : Yes Is there a likelihood that the patient will require additional services to return to the preadmission environment? : No Results of this evaluation have been discussed with: : Patient Patient and/or caregiver agree upon recommended discharge plan? : Yes Equipment needed for post hospitalization: : None Physical environment modification needed / anticipated for discharge: : No Planned post hospital services available for patient? : No DCP Re-evaluation Would patient like to participate in any Care Coordination programs (if applicable): : Not applicable PATIENT: DONNY TERRELL ENCOUNTER: [id number] MEDICAL RECORD#: [id number] ADMISSION DATE: 11/18/2020 DISCHARGE DATE: 11/25/2020 ATTENDING MD: MARIANA FITZPATRICK : AGE: 44 MARITAL STATUS: M DC PLAN ID: [id number] FACILITY: [facility] PRINTED ON: 11/25/20 17:46 CT All edits/amendments must be made on the electronic document DICTATION DATE: 11/25/201745 VP GLOBAL: INOCENCIA 11/25/201745 RPT#: [id number] DC DATE:11/25/20 STATUS: DIS IN [facility] [address] [place] [address] END OF REPORT
--- NOTE | 2020-11-25 18:00 | MORECARE ---
CASE MANAGEMENT DISCHARGE SUMMARY PATIENT: DONNY TERRELL UNIT: [id number] ADM DATE: 11/18/20 AGE: 44 : 71 SEX: F ROOM/BED: D.6724 AUTHOR: ELEAZAR,DOC PHYSICIAN: REFERRING PHYSICIAN: MARYCHUY BADILLO MD DATE OF SERVICE: 11/25/20 Case Management Discharge Planning Summary COMMENTS ENTERED DATE: 11/25/20 17:43 CT COMMENT TYPE: Discharge Planning REVIEWER: Mariama Urena CM spoke with patient to complete initial dc planning assessment. CM educated patient on the CM role and verbal consent given by patient to complete assessment. Patient lives at home with family. Patient is independent. At discharge patient plans to return home and feels this is a safe discharge. CM discussed availability of home health, rehab services, and medical equipment. Patient will have family to transport home. Patient denied known discharge needs at this time. CM will continue to follow and will assist as needed with dc plans/needs. D/ C IMM signed 11/25/20 DCP REVIEW SUMMARY ANTICIPATED D/C DATE: EXPECTED LOS : CASE STATUS: DCP Initiated INITIAL REVIEW: 11/22/2020 INITIAL REVIEWER: Mariama Urena FINAL DISCHARGE DISPOSITION: 01 : Home or Self Care (Routine Discharge) FINAL REVIEWER: Mariama Urena FINAL REVIEW DATE: 11/25/2020 DCP Focus Questions & Answers DCP REV -DCP Review Added on: 11/25/20 5:36 pm QUESTION: ANSWER DCP Screen High Risk Factors: : None Walking limitation: Patient stated self rated walking limitation present? : No Age: : 43 - 62 Prior living environment: : Lives with others DCP Evaluation Patient's ability to cope with chronic illness : d. No chronic illness Mental health screen: : No mental health history Would patient like to participate in any Care Coordination programs (if applicable): : Not applicable Living Arrangements: : Home with Spouse/Significant Other Medication Management: : Patient states can afford medications Pharmacy name(s): : [facility] [place] Does Patient have transportation to get home and to follow-up medical appointments when discharged from the hospital? : Yes Does the patient have electricity at home? : Yes Does the patient have running water in their house? : Yes Equipment in use: : Shower Chair Patient's current cognitive status: : *Oriented to person, place, situation, time and present Functional screen assessment: : Basic needs can adequately be met by self Patient with capacity for self-care or can be cared for in same environment as prior to hospitalization? : Yes Family / Caregiver's ability to cope with chronic illness: : a. Adequate (ability to meet patient's medical needs, ensures patient attends medical appts.) Does the patient have the ability to pay for or attain post discharge needs / services? : Yes Is there a likelihood that the patient will require additional services to return to the preadmission environment? : No Results of this evaluation have been discussed with: : Patient Patient and/or caregiver agree upon recommended discharge plan? : Yes Equipment needed for post hospitalization: : None Physical environment modification needed / anticipated for discharge: : No Planned post hospital services available for patient? : No DCP Re-evaluation Would patient like to participate in any Care Coordination programs (if applicable): : Not applicable PATIENT: DONNY TERRELL ENCOUNTER: [id number] MEDICAL RECORD#: [id number] ADMISSION DATE: 11/18/2020 DISCHARGE DATE: 11/25/2020 ATTENDING MD: MARIANA FITZPATRICK : AGE: 44 MARITAL STATUS: M DC PLAN ID: [id number] FACILITY: [facility] PRINTED ON: 11/25/20 18:00 CT All edits/amendments must be made on the electronic document DICTATION DATE: 11/25/201799 PAGINATOR: INOCENCIA 11/25/20 1800 RPT#: [id number] DC DATE:11/25/20 STATUS: DIS IN [place] [id number] [place] [address] END OF REPORT
[2020-11-26] MEDS ORDERED: HYDROCODON-ACE1 EA10 PO (13:15)
== END 2020-11-25 14:55 | disposition home or self-care (01) | DRG 809 ==
LOC: D.M2 13:21
PROVIDERS: Emergency Medicine; Family Medicine; Family Medicine Adult Medicine; General Practice; Internal Medicine Gastroenterology; Internal Medicine Hematology & Oncology; Internal Medicine Nephrology; ADMIT Emergency Medicine; ATTEND Emergency Medicine
PROC: 07DR3ZX Extraction of Iliac Bone Marrow, Percutaneous Approach, Diagnostic (ICD-10-PCS; principal; 2020-11-21 08:55)
DX: D61.818 Other pancytopenia (principal); N17.9 Acute kidney failure, unspecified; E87.1 Hypo-osmolality and hyponatremia; Z68.1 Body mass index [BMI] 19.9 or less, adult; M32.9 Systemic lupus erythematosus, unspecified; E86.0 Dehydration; R10.9 Unspecified abdominal pain; E87.6 Hypokalemia; E83.52 Hypercalcemia; E11.65 Type 2 diabetes mellitus with hyperglycemia; D50.9 Iron deficiency anemia, unspecified; F19.10 Other psychoactive substance abuse, uncomplicated; F11.10 Opioid abuse, uncomplicated; R63.0 Anorexia; I73.00 Raynaud's syndrome without gangrene

== ENCOUNTER 2020-12-01 17:58 | Emergency (ER) | payer MEDICARE, OTHER ==
[~2020-12-01] VITALS: Ht 154.9 cm; Wt 45.5 kg
[~2020-12-01 17:58] MED LIST changes: +CALMOSEPTINE OI71 GM TOPICAL; +CARAFATE1 G PO; +ERGOCALCIF50000 UNIT PO; +FLUTICASONE PRO16 GM NASAL; +HYDROCODON-ACE1 EA10 PO; +K-DUR20 MEQ PO; +MEPERIDINE HCL50 MG PO; +METHOCARBAMOL750 MG PO; +ONDANSETRON ODT8 MG PO; +QUESTRAN LIG1 PACKET PO; +ZOLOFT100 MG PO
[2020-12-01 18:44] VITALS: Ht 154.9 cm; Wt 45.5 kg
[2020-12-01 19:09] LABS: BASOPHILS 0.4 % (0-2); EOSINOPHILS 0 % (0-7); HEMATOCRIT 33.9 % (36.0-48.0); HEMOGLOBIN 11.3 g/dL (12-16); IMMATURE GRANULOCYTES 0.1 % (0-5); LYMPHOCYTE ABS# 1.77 10x3/uL (1.18-3.74); LYMPHOCYTES 25.7 % (15-50); MCHC 33.3 g/dL (31.0-37.0); MCV 83.9 fL (80.0-100.0); MEAN PLATELET VOLUME 11.4 fL (7.4-10.4); MONOCYTES 10.3 % (2-11); NEUTROPHIL ABS# 4.38 10x3/uL (1.56-6.13); NEUTROPHILS 63.5 % (40-80); RBC 4.04 10x6/uL (4.00-5.40); RDW 15.5 % (11.5-14.5); WBC 6.9 10x3/uL (4.8-10.8)
[2020-12-01 19:10] LABS: PLATELET COUNT 224 10x3/uL (130-400)
[2020-12-01 19:17] LABS: CALC OSMOLALITY 274 mosm/kg (275-300); CALCIUM 8.1 mg/dL (8.5-10.1); CHLORIDE - SERUM 102 mmol/L (98-107); CREATININE - SERUM 1.6 mg/dL (0.6-1.3); GLUCOSE 83 mg/dL (74-106); POTASSIUM - SERUM 3.8 mmol/L (3.5-5.1); SODIUM 137 mmol/L (136-145); UREA NITROGEN 19 mg/dL (7-18); eGFR NON AFRICAN AMERICAN 37 mL/min (90-120)
[2020-12-01 19:26] LABS: ALBUMIN 3.4 g/dL (3.4-5.0); ALKALINE PHOSPHATASE 86 U/L (30-120); ALT (SGPT) 26 U/L (10-68); AMYLASE - SERUM 75 U/L (25-115); BILIRUBIN - TOTAL 0.43 mg/dL (0.2-1.3); LIPASE 79 U/L (73-393)
[2020-12-01 19:28] LABS: TROPONIN-I < 0.017 ng/mL (0.000-0.060)
[2020-12-01 19:40] LABS: BILIRUBIN NEGATIVE (NEGATIVE); KETONE NEGATIVE (NEGATIVE); NITRITE NEGATIVE (NEGATIVE); UROBILINOGEN NORMAL mg/dL (< 2)
[2020-12-01 21:58] VITALS: BP 179/83
== END 2020-12-01 21:56 | disposition home or self-care (01) ==
LOC: D.ER 17:58
PROVIDERS: Emergency Medicine
DX: R10.9 Unspecified abdominal pain (principal); E86.0 Dehydration; R19.7 Diarrhea, unspecified; R63.4 Abnormal weight loss; G89.29 Other chronic pain; E11.40 Type 2 diabetes mellitus with diabetic neuropathy, unspecified; K21.9 Gastro-esophageal reflux disease without esophagitis